=== PATIENT | female | born 1995 | race African-American/Black ===

== ENCOUNTER 2021-07-24 12:35 | Emergency (ER) | payer MEDICAID ==
[~2021-07-24] VITALS: Ht 162.6 cm; Wt 74.8 kg
--- NOTE | 2021-07-24 13:16 | NUR ---
[email or web address], medical screening exam in progress
--- NOTE | 2021-07-24 13:27 | NUR ---
Female panama hat smearer accompanied female patient for (Dr Patel). removed the condom, pt tolorate well.
--- NOTE | 2021-07-24 13:34 | NUR ---
Patient discharged to home in stable condition with brisk steady gait. Written and verbal after care instructions given. Patient verbalized understanding and compliance of instructions. Stressed follow up with primary doctor and tipple repairer or return to ER for worsening s/s.
== END 2021-07-24 13:35 | disposition home or self-care (01) ==
LOC: ER 12:35
DX: T19.2XXA Foreign body in vulva and vagina, initial encounter (principal); X58.XXXA Exposure to other specified factors, initial encounter; Y93.89 Activity, other specified; Y92.89 Other specified places as the place of occurrence of the external cause
CPT/HCPCS: A4663